=== PATIENT | male | born 1940 | race Two or more races ===

== ENCOUNTER 2020-09-05 17:55 | Emergency (ER) | payer OTHER ==
[~2020-09-05] VITALS: Ht 182.9 cm; Wt 90.7 kg
[2020-09-05] MEDS ORDERED: OXYMETAZOLINE HCL 0.05 % NASAL SPRAY 15ML EACHNOSTRI ONE (19:45)
[2020-09-05 19:56] LABS: Basophils # (auto) 0 10 ^3/uL (0-0.2); Basophils % (auto) 0.5 % (0.0-2.0); Eosinophils # (auto) 0 10 ^3/uL (0-0.8); Eosinophils % (auto) 0.2 % (0.0-7.0); Hematocrit 32.6 % (41.0-53.0); Hemoglobin 11.3 g/dL (13.5-17.5); Lymphocytes # (auto) 1.8 10 ^3/uL (0.4-5.4); Lymphocytes % (auto) 26.1 % (10.0-50.0); Mean Corpuscular Hemoglobin 30.3 pg (28.0-32.0); Mean Corpuscular Hgb Conc. 34.6 g/dL (32.0-36.0); Mean Corpuscular Volume 87.7 fL (80.0-100.0); Monocytes # (auto) 0.6 10 ^3/uL (0-1.3); Neutrophils # (auto) 4.5 10 ^3/uL (1.6-8.6); Neutrophils % (auto) 64.2 % (37.0-80.0); Nucleated Red Blood Cells % 0.1 %; Platelet Count (auto) 243 10^3/uL (140-450); Red Blood Cells 3.72 10^6/uL (4.5-5.90); Red Cell Distribution Width 15.5 % (11.8-14.3)
[2020-09-05 20:10] LABS: INR 2.54 (0.9-1.15)
[2020-09-05 20:19] LABS: Albumin 3.1 g/dL (3.4-5.0); BUN/Creatinine Ratio 21.1; Calcium 8.4 mg/dL (8.5-10.1)
[2020-09-05 20:22] LABS: Bilirubin, Total 0.8 mg/dL (0.2-1.0); Total Protein 6.9 g/dL (6.4-8.2)
[2020-09-05] MEDS ORDERED: HYDROcodone-ACET 5/325MG TAB PO ONE (22:00)
[2020-09-06] VITALS: BP 132/79
== END 2020-09-06 02:38 | disposition home or self-care (01) ==
LOC: EDBD 17:55 → ER 18:06
DX: R04.0 Epistaxis (principal)
CPT/HCPCS: 36415; 80053; 85025; 85049; 85610; 86850; 86900; 86901

== ENCOUNTER 2023-02-27 09:38 | Emergency (ER) | payer OTHER ==
[~2023-02-27] VITALS: Ht 185.4 cm; Wt 110.0 kg
[2023-02-27 09:51] VITALS: BP 118/75; PULSE 122; RESP 18; O2SAT 99
[2023-02-27 10:33] LABS: Basophils # (auto) 0 10 ^3/uL (0-0.2); Basophils % (auto) 0.3 % (0.0-2.0); Eosinophils # (auto) 0 10 ^3/uL (0-0.8); Hematocrit 32.4 % (41.0-53.0); Hemoglobin 10.7 g/dL (13.5-17.5); Lymphocytes # (auto) 0.9 10 ^3/uL (0.4-5.4); Lymphocytes % (auto) 11.8 % (10.0-50.0); Mean Corpuscular Hemoglobin 27.2 pg (28.0-32.0); Mean Corpuscular Volume 82.4 fL (80.0-100.0); Monocytes # (auto) 0.6 10 ^3/uL (0-1.3); Monocytes % (auto) 7.4 % (0.0-12.0); Neutrophils # (auto) 6.3 10 ^3/uL (1.6-8.6); Neutrophils % (auto) 80.5 % (37.0-80.0); Nucleated Red Blood Cells % 0.1 %; Red Blood Cells 3.93 10^6/uL (4.5-5.90); Red Cell Distribution Width 16.5 % (11.8-14.3); White Blood Cell 7.8 10^3/uL (4.4-10.8)
[2023-02-27 11:10] LABS: Albumin 3.3 g/dL (3.2-4.8); Alkaline Phosphatase 65 U/L (46-116); Anion Gap 12 (5-15); Aspartate Aminotransferase 19 U/L (13-40); BUN/Creatinine Ratio 6.8 (10.0-20.0); Blood Urea Nitrogen 9 mg/dL (9-23); Calcium 8.5 mg/dL (8.5-10.1); Carbon Dioxide 22 mmol/L (20-30); Chloride 98 mmol/L (98-107); Glucose 179 mg/dL (74-106); Potassium 3.3 mmol/L (3.5-5.1); Sodium 132 mmol/L (136-145)
[2023-02-27 11:11] LABS: Bilirubin, Total 1.1 mg/dL (0.2-1.0); Total Protein 6.5 g/dL (5.7-8.2)
[2023-02-27 11:15] LABS: Alanine Aminotransferase < 9 U/L (7-40)
== END 2023-02-27 18:22 | disposition left against medical advice (07) ==
LOC: ER 09:38
DX: F32.A Depression, unspecified (principal); Z53.21 Procedure and treatment not carried out due to patient leaving prior to being seen by health care provider
CPT/HCPCS: 36415; 80053; 85025

== ENCOUNTER 2023-03-04 13:07 | Inpatient (IN) | payer OTHER ==
[~2023-03-04] VITALS: Ht 185.4 cm; Wt 123.6 kg
[2023-03-04 15:27] LABS: Basophils # (auto) 0 10 ^3/uL (0-0.2); Basophils % (auto) 0.2 % (0.0-2.0); Eosinophils # (auto) 0 10 ^3/uL (0-0.8); Hematocrit 30.1 % (41.0-53.0); Hemoglobin 9.9 g/dL (13.5-17.5); Lymphocytes # (auto) 0.6 10 ^3/uL (0.4-5.4); Lymphocytes % (auto) 8.4 % (10.0-50.0); Mean Corpuscular Hemoglobin 26.5 pg (28.0-32.0); Mean Corpuscular Hgb Conc. 32.8 g/dL (32.0-36.0); Mean Corpuscular Volume 80.7 fL (80.0-100.0); Monocytes # (auto) 0.5 10 ^3/uL (0-1.3); Monocytes % (auto) 7.6 % (0.0-12.0); Neutrophils # (auto) 5.7 10 ^3/uL (1.6-8.6); Neutrophils % (auto) 83.8 % (37.0-80.0); Red Blood Cells 3.74 10^6/uL (4.5-5.90); Red Cell Distribution Width 16.7 % (11.8-14.3); White Blood Cell 6.8 10^3/uL (4.4-10.8)
[2023-03-04 15:34] LABS: Alanine Aminotransferase 19 U/L (7-40); Albumin 2.8 g/dL (3.2-4.8); Alkaline Phosphatase 57 U/L (46-116); Anion Gap 9 (5-15); Aspartate Aminotransferase 22 U/L (13-40); BUN/Creatinine Ratio 9.7 (10.0-20.0); Blood Alcohol < 3.0 mg/dL (<10); Blood Urea Nitrogen 15 mg/dL (9-23); Calcium 7.9 mg/dL (8.5-10.1); Carbon Dioxide 24 mmol/L (20-30); Chloride 101 mmol/L (98-107); Glucose 160 mg/dL (74-106); Potassium 3.8 mmol/L (3.5-5.1); Sodium 134 mmol/L (136-145)
[2023-03-04 15:35] LABS: Bilirubin, Total 1.1 mg/dL (0.2-1.0); Total Protein 5.6 g/dL (5.7-8.2)
[2023-03-04 15:51] LABS: INR 1.35 (0.9-1.15); Partial Thromboplastin Time 39.9 SEC (24.5-34.5); Prothrombin Time 14.2 sec (9.3-11.8)
[2023-03-04 16:28] LABS: Lactic Acid w/Reflex 2.2 mmol/L (0.4-2.0)
[2023-03-04 19:30] VITALS: PULSE 115; RESP 18; O2SAT 97
[2023-03-04 19:58] LABS: Urine Epithelial Cast None Seen /hpf (<5)
[2023-03-04] MEDS ORDERED: SODIUM CHLORIDE 0.9% 1,000 ML IV ONE (20:30)
[2023-03-04 20:39] LABS: Amphetamine Screen, Urine Neg (NEGATIVE); Barbiturate Scree,Urine Neg (NEGATIVE); Benzodiazephine Screen, Urine Neg (NEGATIVE); Cannabinoid Screen, Urine Neg (NEGATIVE); Cocaine Screen, Urine Neg (NEGATIVE); Opiate Scree,Urine Neg (NEGATIVE); Phencyclidine Screen, Urine Neg (NEGATIVE)
[2023-03-04 20:48] LABS: Urine Bacteria NONE SEEN /hpf (None Seen); Urine Blood 2+ /uL (Negative); Urine Clarity HAZY (Clear); Urine Color Yellow (Yellow); Urine Hyaline Cast FEW /lpf (0 - 2); Urine Mucus FEW (None Seen); Urine Protein, UAD 1+ (Negative); Urine Specific Gravity 1.019 (1.001-1.035); Urine WBC 7 /hpf (0 - 3); Urine pH 5.5 (5.0-8.0)
[2023-03-05] MEDS ORDERED: ONDANSETRON HCL 4 MG/2 ML VIAL ONE (00:21)
[2023-03-05] MEDS ORDERED: ONDANSETRON HCL 4 MG/2 ML VIAL IV ONE (00:30)
[2023-03-05] MEDS ORDERED: traZODone HCL 50 MG TAB PO ONE (05:00)
[2023-03-05 06:40] LABS: COVID19 ANTIGEN SOFIA FIA NEGATIVE (NEGATIVE)
[2023-03-05] MEDS ORDERED: dilTIAZem 25 MG/5 ML VIAL IV ONE ×2 (06:50→07:00)
[2023-03-05] MEDS ORDERED: SODIUM CHLORIDE 0.9% 1,000 ML IV ONE (07:00)
[2023-03-05] MEDS ORDERED: SODIUM CHLORIDE 0.9% 1,000 ML IVB ONE (07:00)
[2023-03-05] MEDS ORDERED: METO25TA5 PO (09:09)
[2023-03-05] MEDS: METOPROLOL TARTRATE 25 MG TAB PO SCH ×4 (09:24→22:36)
[2023-03-05] MEDS ORDERED: busPIRone HCL 10 MG TAB PO ONE (10:00)
[2023-03-05] MEDS ORDERED: DULoxetine HCL 30 MG CAP PO ONE (10:00)
[2023-03-05] MEDS ORDERED: LORazepam 2MG/ML-1ML VIAL IV ONE (11:30)
[2023-03-05] MEDS ORDERED: LORazepam 2MG/ML-1ML VIAL ONE (11:30)
[2023-03-05] MEDS ORDERED: MORPHINE SULFATE INJ 2 MG/ml SYRG IV PRN (14:45)
[2023-03-05] MEDS ORDERED: NITROGLYCERIN 0.4 MG SL TAB SL PRN (14:45)
[2023-03-05] MEDS ORDERED: ACETAMINOPHEN 325 MG TAB PO PRN (14:45)
[2023-03-05] MEDS: SODIUM CHLORIDE 0.9% 1,000 ML IV SCH (14:45)
[2023-03-05] MEDS ORDERED: IOHEXOL 350 MG/ML 100ML IJ ONE (14:56)
[2023-03-05] MEDS: MAGNESIUM SULFATE 1GM/100ML 100 ML IV SCH ×3 (15:00→21:08)
[2023-03-05 15:28] LABS: Triglycerides 115 mg/dL (< 150)
[2023-03-05 15:29] LABS: LDL Cholesterol 59 mg/dL (< 100)
[2023-03-05 15:30] LABS: Cholesterol 96 mg/dL (< 200); HDL Cholesterol 12 mg/dL (40-59)
[2023-03-05 15:45] LABS: Platelet Estimate Adequate
[2023-03-05 15:46] LABS: Anisocytosis Slight
[2023-03-05 16:01] LABS: Hypochromia Slight
[2023-03-05] MEDS ORDERED: ENOXAPARIN SOD 120 MG/0.8 ML SYRINGE SC ONE (18:00)
[2023-03-05 18:16] LABS: Chloride 105 mmol/L (98-107); Potassium 3.1 mmol/L (3.5-5.1); Sodium 136 mmol/L (136-145)
[2023-03-05 18:17] LABS: Anion Gap 9 (5-15); Carbon Dioxide 22 mmol/L (20-30)
[2023-03-05 18:18] LABS: Calcium 7.6 mg/dL (8.5-10.1)
[2023-03-05 18:22] LABS: BUN/Creatinine Ratio 8.9 (10.0-20.0); Blood Urea Nitrogen 10 mg/dL (9-23); Glucose 116 mg/dL (74-106)
[2023-03-05] MEDS: POTASSIUM CHL 20 Meq TABLET PO ONE ×2 (19:15→22:27)
[2023-03-05 19:45] VITALS: PULSE 114; RESP 30; O2SAT 97
[2023-03-05] MEDS ORDERED: MAGNESIUM SULFATE 1GM/100ML 100 ML IV ONE (21:06)
[2023-03-05] MEDS: TERAZOSIN HCL 5 MG CAP PO SCH ×2 (22:26→22:36)
[2023-03-06] MEDS: METOPROLOL TARTRATE 25 MG TAB PO SCH ×2 (04:00→09:48)
[2023-03-06] MEDS: LORazepam 2MG/ML-1ML VIAL IV PRN ×4 (04:06→20:59)
[2023-03-06 05:18] LABS: Basophils # (auto) 0 10 ^3/uL (0-0.2); Basophils % (auto) 0.3 % (0.0-2.0); Eosinophils # (auto) 0 10 ^3/uL (0-0.8); Eosinophils % (auto) 0.3 % (0.0-7.0); Hematocrit 26.2 % (41.0-53.0); Hemoglobin 8.7 g/dL (13.5-17.5); Lymphocytes # (auto) 0.6 10 ^3/uL (0.4-5.4); Mean Corpuscular Hgb Conc. 33.3 g/dL (32.0-36.0); Monocytes # (auto) 0.6 10 ^3/uL (0-1.3); Monocytes % (auto) 9.6 % (0.0-12.0); Neutrophils # (auto) 4.7 10 ^3/uL (1.6-8.6); Neutrophils % (auto) 79.8 % (37.0-80.0); Red Blood Cells 3.23 10^6/uL (4.5-5.90); Red Cell Distribution Width 16.6 % (11.8-14.3); White Blood Cell 5.9 10^3/uL (4.4-10.8)
[2023-03-06 06:00] LABS: Alanine Aminotransferase 10 U/L (7-40); Albumin 2.8 g/dL (3.2-4.8); Alkaline Phosphatase 53 U/L (46-116); Anion Gap 9 (5-15); Aspartate Aminotransferase 20 U/L (13-40); Blood Urea Nitrogen 9 mg/dL (9-23); Calcium 7.8 mg/dL (8.7-10.4); Carbon Dioxide 22 mmol/L (20-30); Chloride 102 mmol/L (98-107); Glucose 117 mg/dL (74-106); Potassium 3.5 mmol/L (3.5-5.1); Sodium 133 mmol/L (136-145)
[2023-03-06 06:01] LABS: Bilirubin, Total 0.8 mg/dL (0.2-1.0); Total Protein 5.6 g/dL (5.7-8.2)
[2023-03-06] MEDS: ENOXAPARIN SOD 120 MG/0.8 ML SYRINGE SC SCH ×2 (06:13→18:53)
[2023-03-06] MEDS: LEVOTHYROXINE SODIUM 25 MCG TAB PO SCH (07:03)
[2023-03-06] MEDS: SODIUM CHLORIDE 0.9% 1,000 ML IV SCH (07:25)
[2023-03-06 07:35] VITALS: PULSE 97; RESP 20; O2SAT 94
[2023-03-06] MEDS ORDERED: DIGOXIN (250MCG/ML) 2 ML AMPULE IV ONE ×3 (09:45→14:00)
[2023-03-06] MEDS ORDERED: POTASSIUM CHL 20 Meq TABLET PO ONE (09:45)
[2023-03-06] MEDS: FUROSEMIDE 20 MG TAB PO SCH (09:49)
[2023-03-06] MEDS: busPIRone HCL 10 MG TAB PO SCH (09:49)
[2023-03-06] MEDS: DULoxetine HCL 30 MG CAP PO SCH (09:49)
[2023-03-06] MEDS ORDERED: ENOXAPARIN SOD 40 MG/0.4 ML SYRINGE SC SCH (10:00)
[2023-03-06] MEDS ORDERED: VANCOMYCIN PER PHARMACY 0 MG IV SCH (13:45)
[2023-03-06] MEDS ORDERED: VANCOMYCIN 1GM/200ML 200 ML IV ONE (15:45)
[2023-03-06 19:30] VITALS: PULSE 128; RESP 24; O2SAT 94
[2023-03-06] MEDS: TERAZOSIN HCL 5 MG CAP PO SCH (21:44)
[2023-03-06] MEDS: traZODone HCL 50 MG TAB PO SCH (21:44)
[2023-03-06] MEDS ORDERED: METOPROLOL TARTRATE 50 MG TAB PO SCH (22:00)
[2023-03-06] MEDS ORDERED: DABI75CA5 PO (22:42)
[2023-03-06] MEDS ORDERED: LEVO25TA6 PO (22:42)
[2023-03-06] MEDS ORDERED: SIMV20TA20 PO (22:42)
[2023-03-06] MEDS ORDERED: FAMO-12 PO (22:42)
[2023-03-06] MEDS ORDERED: GABA-1308 PO (22:42)
[2023-03-06] MEDS ORDERED: ONDA-155 SL (22:42)
[2023-03-06] MEDS ORDERED: TERA2CAP45 PO (22:42)
[2023-03-06] MEDS ORDERED: FURO20TA3 PO (22:42)
[2023-03-06] MEDS ORDERED: BUSP15TA60 PO (22:42)
[2023-03-06] MEDS ORDERED: DULO60CA41 PO (22:42)
[2023-03-06] MEDS ORDERED: METO25TA5 PO (22:42)
[2023-03-06] MEDS ORDERED: TRAZ-227 PO (22:42)
[2023-03-07 05:00] VITALS: BP 115/46
[2023-03-07] MEDS: ENOXAPARIN SOD 120 MG/0.8 ML SYRINGE SC SCH (06:00)
[2023-03-07] MEDS: LEVOTHYROXINE SODIUM 25 MCG TAB PO SCH (06:07)
[2023-03-07 08:00] VITALS: RESP 18
[2023-03-07] MEDS ORDERED: POTASSIUM CHL 20 Meq TABLET PO ONE (09:15)
[2023-03-07] MEDS: DIGOXIN 0.125 MG TAB PO SCH (09:17)
[2023-03-07] MEDS: FUROSEMIDE 20 MG TAB PO SCH (09:18)
[2023-03-07] MEDS: METOPROLOL TARTRATE 25 MG TAB PO SCH ×2 (09:18→19:46)
[2023-03-07] MEDS: DULoxetine HCL 30 MG CAP PO SCH (09:18)
[2023-03-07] MEDS: busPIRone HCL 10 MG TAB PO SCH (09:19)
[2023-03-07] MEDS: APIXABAN 2.5 MG TAB PO SCH ×2 (10:00→19:46)
[2023-03-07] MEDS ORDERED: VANCOMYCIN 1GM/200ML 200 ML IV SCH (10:00)
[2023-03-07 11:30] VITALS: BP 147/63; RESP 18; TEMP 98.8
[2023-03-07 16:00] VITALS: BP 125/50; RESP 18; TEMP 98.6
[2023-03-07 16:32] LABS: Basophils # (auto) 0 10 ^3/uL (0-0.2); Basophils % (auto) 0.6 % (0.0-2.0); Eosinophils # (auto) 0 10 ^3/uL (0-0.8); Hematocrit 26.9 % (41.0-53.0); Hemoglobin 8.7 g/dL (13.5-17.5); Lymphocytes # (auto) 1.4 10 ^3/uL (0.4-5.4); Monocytes # (auto) 0.7 10 ^3/uL (0-1.3); Neutrophils # (auto) 2.7 10 ^3/uL (1.6-8.6)
[2023-03-07 16:33] LABS: Chloride 104 mmol/L (98-107); Eosinophils % (auto) 0.9 % (0.0-7.0); Lymphocytes % (auto) 29.3 % (10.0-50.0); Mean Corpuscular Hemoglobin 26.6 pg (28.0-32.0); Mean Corpuscular Hgb Conc. 32.5 g/dL (32.0-36.0); Mean Corpuscular Volume 81.9 fL (80.0-100.0); Monocytes % (auto) 13.9 % (0.0-12.0); Neutrophils % (auto) 55.3 % (37.0-80.0); Nucleated Red Blood Cells % 0.2 %; Potassium 3.7 mmol/L (3.5-5.1); Red Blood Cells 3.28 10^6/uL (4.5-5.90); Red Cell Distribution Width 16.7 % (11.8-14.3); Sodium 136 mmol/L (136-145); White Blood Cell 4.9 10^3/uL (4.4-10.8)
[2023-03-07 16:34] LABS: Anion Gap 8 (5-15); Calcium 7.5 mg/dL (8.7-10.4); Carbon Dioxide 24 mmol/L (20-30)
[2023-03-07 16:39] LABS: BUN/Creatinine Ratio 7.1 (10.0-20.0); Blood Urea Nitrogen 8 mg/dL (9-23); Glucose 104 mg/dL (74-106); Magnesium 1.8 mg/dL (1.6-2.6)
[2023-03-07 16:44] LABS: Folate (Folic Acid) 9.69 ng/mL (>5.38)
[2023-03-07] MEDS: traZODone HCL 50 MG TAB PO SCH (19:45)
[2023-03-07] MEDS: TERAZOSIN HCL 5 MG CAP PO SCH (19:46)
[2023-03-07] MEDS: LORazepam 2MG/ML-1ML VIAL IV PRN (19:47)
[2023-03-07 20:00] VITALS: BP 140/78; PULSE 92; RESP 18; TEMP 98.4; O2SAT 96
[2023-03-07 22:00] VITALS: BP 129/59; PULSE 70; RESP 18; TEMP 98.6; O2SAT 94
[2023-03-08] VITALS (7 sets, daily range): BP systolic 136–155; BP diastolic 52–76; PULSE 86–103; RESP 18–20; TEMP 98–98.4; O2SAT 93–98
[2023-03-08 05:32] LABS: Basophils # (auto) 0 10 ^3/uL (0-0.2); Hematocrit 27.5 % (41.0-53.0); Hemoglobin 9.1 g/dL (13.5-17.5); Lymphocytes # (auto) 1.2 10 ^3/uL (0.4-5.4); Monocytes # (auto) 0.5 10 ^3/uL (0-1.3)
[2023-03-08 05:34] LABS: Anion Gap 6 (5-15); Carbon Dioxide 25 mmol/L (20-30); Chloride 105 mmol/L (98-107); Potassium 3.6 mmol/L (3.5-5.1); Sodium 136 mmol/L (136-145)
[2023-03-08 05:35] LABS: Basophils % (auto) 0.3 % (0.0-2.0); Calcium 7.6 mg/dL (8.7-10.4); Eosinophils # (auto) 0.1 10 ^3/uL (0-0.8); Eosinophils % (auto) 1.3 % (0.0-7.0); Lymphocytes % (auto) 28.1 % (10.0-50.0); Mean Corpuscular Hemoglobin 26.9 pg (28.0-32.0); Mean Corpuscular Hgb Conc. 33.2 g/dL (32.0-36.0); Mean Corpuscular Volume 80.8 fL (80.0-100.0); Monocytes % (auto) 12.6 % (0.0-12.0); Neutrophils # (auto) 2.4 10 ^3/uL (1.6-8.6); Neutrophils % (auto) 57.7 % (37.0-80.0); Nucleated Red Blood Cells % 0.1 %; Red Cell Distribution Width 16.2 % (11.8-14.3); White Blood Cell 4.1 10^3/uL (4.4-10.8)
[2023-03-08 05:40] LABS: BUN/Creatinine Ratio 7.8 (10.0-20.0); Blood Urea Nitrogen 8 mg/dL (9-23); Glucose 92 mg/dL (74-106)
[2023-03-08] MEDS: LEVOTHYROXINE SODIUM 25 MCG TAB PO SCH (06:15)
[2023-03-08] MEDS: FUROSEMIDE 20 MG TAB PO SCH (08:25)
[2023-03-08] MEDS: busPIRone HCL 10 MG TAB PO SCH (08:25)
[2023-03-08] MEDS: DULoxetine HCL 30 MG CAP PO SCH (08:25)
[2023-03-08] MEDS: METOPROLOL TARTRATE 25 MG TAB PO SCH ×2 (08:26→20:23)
[2023-03-08] MEDS: APIXABAN 2.5 MG TAB PO SCH ×2 (08:26→20:23)
[2023-03-08] MEDS: DIGOXIN 0.125 MG TAB PO SCH (08:26)
[2023-03-08] MEDS: VANCOMYCIN 1GM/200ML 200 ML IV SCH ×3 (10:16→23:00)
[2023-03-08] MEDS ORDERED: MAGNESIUM SULFATE 1GM/100ML 100 ML IV ONE (10:30)
[2023-03-08] MEDS ORDERED: POTASSIUM CHL 20 Meq TABLET PO ONE (10:30)
[2023-03-08] MEDS: LORazepam 2MG/ML-1ML VIAL IV PRN ×3 (11:29→23:36)
[2023-03-08] MEDS: traZODone HCL 50 MG TAB PO SCH (20:23)
[2023-03-08] MEDS: TERAZOSIN HCL 5 MG CAP PO SCH (20:24)
== END 2023-03-09 01:15 | disposition short-term general hospital (02) | DRG 871 ==
LOC: EDBD 13:07 → ER 13:07 → TELE-WESTW 20:01 → TELE 03-05 14:41 → TELE-CENTR 03-05 23:59 → TELE 03-06 00:07 → TELE-WESTW 03-06 21:00
PROVIDERS: ADMIT Nurse Practitioner Family; ATTEND Internal Medicine
DX: A40.9 Streptococcal sepsis, unspecified (principal); I50.31 Acute diastolic (congestive) heart failure; N17.0 Acute kidney failure with tubular necrosis; D68.69 Other thrombophilia; I48.91 Unspecified atrial fibrillation; E66.01 Morbid (severe) obesity due to excess calories; D64.9 Anemia, unspecified; E78.5 Hyperlipidemia, unspecified; E83.42 Hypomagnesemia; F32.A Depression, unspecified; I11.0 Hypertensive heart disease with heart failure; I27.20 Pulmonary hypertension, unspecified; I08.1 Rheumatic disorders of both mitral and tricuspid valves; R73.9 Hyperglycemia, unspecified; Z20.822 Contact with and (suspected) exposure to COVID-19; Z68.36 Body mass index [BMI] 36.0-36.9, adult; E03.9 Hypothyroidism, unspecified; F29 Unspecified psychosis not due to a substance or known physiological condition; N40.0 Benign prostatic hyperplasia without lower urinary tract symptoms; J44.9 Chronic obstructive pulmonary disease, unspecified; K76.0 Fatty (change of) liver, not elsewhere classified; K80.20 Calculus of gallbladder without cholecystitis without obstruction; Z63.4 Disappearance and death of family member; Z88.0 Allergy status to penicillin; Z88.6 Allergy status to analgesic agent; Z95.3 Presence of xenogenic heart valve; Z71.3 Dietary counseling and surveillance; Z91.040 Latex allergy status; Z95.2 Presence of prosthetic heart valve
CPT/HCPCS: 36415; 70450; 71045; 71275; 80048; 80053; 80061; 80307; 80320; 81001; 82607; 82746; 83036; 83540; 83550; 83605; 83735; 83880; 84443; 84484; 85025; 85379; 85610; 85730; 87040; 87076; 87077; 87186; 87426; 93005; 93306; 93886; 96361; 96372; 96374; 96375; 97163; G0378; J2405